=== PATIENT | female | born 1950 | race Caucasian/White ===

== ENCOUNTER 2017-05-13 10:59 | Outpatient (CLI) | payer MEDICARE, BC | END 2017-05-13 11:00 | disposition home or self-care (01) | LOC: BICMAMMO 10:59 | PROVIDERS: ATTEND Family Medicine | DX: Z13.820 Encounter for screening for osteoporosis (principal); M85.88 Other specified disorders of bone density and structure, other site | CPT/HCPCS: 77080 ==

== ENCOUNTER 2017-12-15 19:30 | Outpatient (CLI) | payer MEDICARE, BC | END 2017-12-15 19:31 | disposition home or self-care (01) | LOC: SLEEPLAB 19:30 | PROVIDERS: ATTEND Family Medicine | DX: G47.33 Obstructive sleep apnea (adult) (pediatric) (principal); R53.83 Other fatigue; F41.8 Other specified anxiety disorders; R06.83 Snoring; G47.00 Insomnia, unspecified; G47.10 Hypersomnia, unspecified; I10 Essential (primary) hypertension; G47.61 Periodic limb movement disorder; Z68.26 Body mass index [BMI] 26.0-26.9, adult | CPT/HCPCS: 95811 ==

== ENCOUNTER 2018-07-10 08:20 | Outpatient (CLI) | payer MEDICARE, BC ==
[2018-07-10 08:54] LABS: ALT (SGPT) 28 U/L (8-55); AST (SGOT) 22 U/L (5-34); Albumin 4.3 g/dL (3.4-4.8); Alkaline Phosphatase 73 U/L (40-150); Anion Gap 12 mmol/L (10-20); BUN (Urea Nitrogen) 11 mg/dL (9.8-20.1); Bilirubin, Total 0.6 mg/dL (0.2-1.2); Calc. Creatinine Clearance 0 mL/min (70-130); Calcium 9.5 mg/dL (7.8-10.44); Carbon Dioxide 25 mmol/L (23-31); Cardiac Risk 3.3 (Less than 4.5); Chloride 106 mmol/L (98-107); Cholesterol 210 mg/dl (< 200 Desired); Estimated GFR-MDRD 72; Globulin 2.5 g/dL (2.4-3.5); Glucose 93 mg/dL (80-115); HDL Cholesterol 63 mg/dL (>60 Neg Risk); LDL Cholesterol, Calculated 125 mg/dL; Protein, Total 6.8 g/dL (6.0-8.3); Sodium 139 mmol/L (136-145); Triglycerides 111 mg/dL (Less than 150)
[2018-07-10 09:47] LABS: Vitamin D, 25 Hydroxy 40.6 ng/ml (> 30.0)
[2018-07-12 11:07] LABS: Thyroid Stimulating Hormone 2.4063 uIU/mL (0.35-4.94)
== END 2018-07-10 08:21 | disposition home or self-care (01) ==
LOC: SCSLAB 08:20
PROVIDERS: ATTEND Family Medicine
DX: E78.5 Hyperlipidemia, unspecified (principal); E55.9 Vitamin D deficiency, unspecified
CPT/HCPCS: 36415; 80053; 80061; 82306